=== PATIENT | male | born 1940 | race Caucasian/White ===

== ENCOUNTER 2019-10-29 10:08 | Outpatient (CLI) | payer MEDICARE, SELFPAY ==
--- NOTE | 2019-10-29 10:13 | ECG_ITS ---
Measurements Intervals [place] Rate: 58 P: 34 ND: 179 QRS: -29 QRSD: 158 T: 66 QT: 456 QTc: 451 Interpretive Statements SINUS BRADYCARDIA LEFT BUNDLE BRANCH BLOCK ABNORMAL ECG Electronically Signed On 10-29-2019 11:44:29 CDT by Bryce Aquino D.O.
[2019-10-29 10:49] LABS: Blood Urea Nitrogen 18 mg/dL (9-20); Calcium 10.6 mg/dL (8.4-10.2); Carbon Dioxide 28 mmol/L (22-30); Chloride 104 mmol/L (98-107); Estimated Glomerular Filt Rate > 60; Glucose 148 mg/dL (75-110); Potassium 4.7 mmol/L (3.4-5.0); Sodium 138 mmol/L (137-145)
== END 2019-10-29 10:09 | disposition home or self-care (01) ==
PROVIDERS: Anesthesiology; PCP Internal Medicine; Visit Provider Urology
DX: Z01.818 Encounter for other preprocedural examination (principal); C61 Malignant neoplasm of prostate; I10 Essential (primary) hypertension; E11.9 Type 2 diabetes mellitus without complications; R94.31 Abnormal electrocardiogram [ECG] [EKG]
CPT/HCPCS: 36415; 80048; 87086; 93005

== ENCOUNTER 2019-11-03 02:21 | Day surgery (SDC) | payer MEDICARE, SELFPAY ==
[2019-10-28 09:30] VITALS: BMI 29.1
--- NOTE | 2019-11-03 09:20 | WPDHPUPDATE1 ---
History and Physical Update Update Date/Time: 11/03/19 09:20 History and Physical has been reviewed, including an updated exam of the patient. There are NO changes in the patient's condition. Risks, benefits, and alternatives have been discussed and questions answered. Patient agrees to proceed with procedure.
[2019-11-03 10:55] VITALS: BP 159/72; PULSE 60; RESP 18; TEMP 36.3; O2SAT 97
[2019-11-03] MEDS: LACTATED RINGERS 1,000 ML 30 ML IV CONT (10:55)
[2019-11-03 11:02] LABS: Glucose Point of Care 138 (65-105)
--- NOTE | 2019-11-03 12:05 | WPDANESEPPF ---
Anes - Initial Pre Proc Eval Procedure: Operation Date: 11/03/19 12:30 Proposed Procedures p Insertion SpaceOAR Hydrogel System - Contreras Amaya MD Date/Time: 11/03/19 12:05 Surgeon: Contreras Amaya MD Pre Op Diagnosis: Prostate Ca Patient Data Age: 79 Gender: M Height: 6 ft Weight: 92.9 kg Last Vital Signs Temp 36.3 C L 11/03/19 10:55 Pulse 60 11/03/19 10:55 Resp 18 11/03/19 10:55 BP 159/72 H 11/03/19 10:55 Pulse Ox 97 11/03/19 10:55 Allergies Allergy/AdvReac Type Severity Reaction Status Date / Time No Known Allergies Allergy Unknown Verified 11/03/19 10:36 Home Medications Medication Instructions Recorded Confirmed Type amlodipine 10 mg PO HS 10/28/19 10/28/19 History aspirin 81 mg PO DAILY 10/28/19 10/28/19 History carbidopa-levodopa 2 tablet PO HS 10/28/19 10/28/19 History docusate sodium [Stool Softener] 100 mg PO DAILY 10/28/19 10/28/19 History gabapentin 100 mg PO BID 10/28/19 10/28/19 History glipizide 2.5 mg PO HS 10/28/19 10/28/19 History hydrochlorothiazide 25 mg PO DAILY 10/28/19 10/28/19 History isosorbide mononitrate 60 mg PO DAILY 10/28/19 10/28/19 History lisinopril 40 mg PO DAILY 10/28/19 10/28/19 History loratadine 10 mg PO HS 10/28/19 10/28/19 History metformin 1,000 mg PO BID 10/28/19 10/28/19 History metoprolol tartrate 50 mg PO Q12H 10/28/19 10/28/19 History pravastatin 80 mg PO HS 10/28/19 10/28/19 History Laboratory Tests 11/03/19 10:59 POC Capillary Glucose 138 mg/dl H mg/dl (65-105) Patient hx anesthesia problems: none Family hx anesthesia problems: none PMFSH Past Medical History Medical History Diabetes Hyperlipidemia Hypertension Myocardial infarction Neuropathy ES (obstructive sleep apnea) Prostate cancer Social History Social History Gender identity (if verbalized by the patient): Male Anes - Eval Final PreProcedure Day of Procedure 11/03/19 12:05 Patient weight: overweight Heart: regular rate and rhythm Lungs: decreased breath sounds Airway: Mallampati scale class II Neurological: alert and oriented Last oral intake: >/= 8 hours ASA classification: IV Emergent: no Anesthetic plan: proceed Anesthesia type and monitoring: general LMA and standard monitoring Informed Consent: The patient's anesthetic plan and its attendant risks and benefits were discussed with the patient/family/POA. Questions were solicited and answers provided to the satisfaction of the patient/family/POA.
[2019-11-03] MEDS: ceFAZolin 2 GM/D5W 50 ML 2 GM/50 ML BAG IVPB (13:03)
--- NOTE | 2019-11-03 13:28 | PM.PROC ---
Procedure Note - Detailed Date of procedure: 11/03/19 Pre-op diagnosis: Prostate Ca Post-op diagnosis: same Procedure performed: Space AOR 19576 Ultrasound guidance 56927 Description of procedure: Patient was taken to the operative suite and correctly identified. Once general anesthesia was obtained he was placed in the dorsal lithotomy position prepped and draped usual sterile fashion. Transrectal ultrasound was then placed. Prostate was visualized both the sagittal and axial planes from the base to the apex. The space Hydrogel was then prepared is described as manufacture's instructions for use. Under transrectal ultrasound guidance, 15 cm 18 gauge needle was inserted transperineal through the rectal urethralis muscle and the needle to be advanced into the perirectal fat posterior to the prostate. Needle position and downward bevel were confirm both sagittal and axial george. 3-5 cc of sterile saline was used to hydro dissect the space between the fascia and the anterior rectal wall. Aspiration did not yield any bleeding. With a needle-tip at mid gland the axial field was viewed to confirm the needle was not in the rectal wall. The assembled space Hydrogel delivery system was then attached to the 18 gauge needle. Under ultrasound guidance in the sagittal plane, a smooth, continuous injection technique was used to dispense all 10 cc of the space Hydrogel into the space between the prostate and the rectum. Optimal visualization of the needle during Hydrogel a associate professor of theatre a da silva was maintained at all times. No suspected penetration or compromise of the rectal wall occurred. Patient tolerated the procedure well without any complications and was taken recovery room in stable condition. Anesthesia: GLMA Surgeon: Contreras Amaya MD Drains: No Packing: No Pathology: none sent Complications: No immediate complications Condition: stable Disposition: PACU
[2019-11-03 13:33] VITALS: BP 106/63; PULSE 89; RESP 16; TEMP 36.3; O2SAT 100
[2019-11-03 13:40] LABS: Glucose Point of Care 105 (65-105)
[2019-11-03 13:45] VITALS: BP 106/55; PULSE 57; RESP 16; O2SAT 100
[2019-11-03 14:00] VITALS: BP 123/55; PULSE 56; RESP 14; O2SAT 97
[2019-11-03 14:10] VITALS: BP 148/76; PULSE 57; RESP 20
[2019-11-03 14:35] VITALS: BP 161/74; PULSE 57; RESP 16
== END 2019-11-03 15:15 | disposition home or self-care (01) ==
PROVIDERS: PCP Internal Medicine; Visit Provider Urology
PROC: (CPT 55874; principal; 2019-11-03 12:30)
DX: C61 Malignant neoplasm of prostate (principal); I10 Essential (primary) hypertension; E78.5 Hyperlipidemia, unspecified; I25.2 Old myocardial infarction; E11.40 Type 2 diabetes mellitus with diabetic neuropathy, unspecified; G47.33 Obstructive sleep apnea (adult) (pediatric); Z79.84 Long term (current) use of oral hypoglycemic drugs; Z79.82 Long term (current) use of aspirin
CPT/HCPCS: 55874; A9270; J0131; J0690; J2704; J7120

== ENCOUNTER 2019-11-13 09:32 | Outpatient (CLI) | payer MEDICARE, SELFPAY ==
--- NOTE | ~2019-11-13 | MR_ITS ---
EXAMINATION: MR pelvis wo/w con INDICATION: Malignant neoplasm of the prostate TECHNIQUE: Coronal SSFSE ARC, Axial and Coronal 2D FIESTA FatSat, Axial T2 FS, Axial SSFSE BH ARC, Ax ial 3D DualEcho BH, Axial SSFSE-IR Louis, Axial DWI b=600, pre and dynamic postcontrast Axial LAVA ARC, WATER:POST Cor LAVA-FLEX COMPARISON: None available CONTRAST: None FINDINGS: There is a 3.2 x 1.3 cm fluid collection situated between the rectum and prostate, most con sistent with postbiopsy change. Tiny foci of T1 signal hyperintensity in the prostate likely represen t postbiopsy hemorrhage. There are no pathologically enlarged pelvic lymph nodes. Bowel are seen in t he visualized osseous structures are unremarkable. IMPRESSION: 1. No evidence of metastatic disease. 2. Postbiopsy change. Reviewed, dictated and finalized at location B.
[2019-11-13 10:02] LABS: Basophils Percent Auto 0.6 % (0.2-1.2); Eosinophils Absolute Auto 0.4 K/mm3 (0-0.3); Eosinophils Percent Auto 5.2 % (0-4.4); Hematocrit 39.2 % (42.0-52.0); Immature Granulocyte Absolute 0.01 K/mm3 (0.00-0.031); Immature Granulocyte Percent A 0.1 % (0-0.5); Lymphocytes Absolute Auto 1.97 K/mm3 (0.9-3.2); Lymphocytes Percent Auto 27.9 % (18.3-44.2); Mean Corpuscular HGB Conc 33.2 g/dl (32-36); Mean Corpuscular Hemoglobin 28.3 pg (26-34); Mean Corpuscular Volume 85.2 fl (80-100); Mean Platelet Volume 9.7 fl (7.4-10.4); Monocytes Absolute Auto 0.6 K/mm3 (0.1-0.6); Monocytes Percent Auto 7.8 % (2.6-8.5); Neutrophils Absolute Auto 4.1 K/mm3 (1.3-6.7); Neutrophils Percent Auto 58.4 % (45.5-73.1); Platelet Count Result 265 k/mm3 (150-375); Red Cell Distribution Width 12.9 % (11.5-14.5); White Blood Count 7.1 K/mm3 (4.5-10.0)
[2019-11-13 10:04] LABS: Add Urine Microscopic? NO; Appearance Urine Clear (Clear); Bilirubin Urine Negative (Negative); Blood Urine Negative (Negative); Color Urine Yellow (Yellow); Glucose Urine UA Negative (Negative); Ketones Urine Negative (Negative); Leukocyte Esterase Ur Negative LEU/UL (NEGATIVE); Nitrate Urine Negative (Negative); Protein Urine Negative (Negative); Specific Grav Ur 1.014 (1.001-1.035); Urobilinogen Urine Negative mg/dL (<2.0)
[2019-11-13 10:18] LABS: Alanine Aminotransferase 22 U/L (4-50); Albumin Level 4.4 g/dL (3.5-5.1); Alkaline Phosphatase 82 U/L (38-126); Aspartate Amino Transferase 25 U/L (17-59); Bilirubin,Total 0.3 mg/dL (0.2-1.3); Blood Urea Nitrogen 25 mg/dL (9-20); Calcium 10.6 mg/dL (8.4-10.2); Carbon Dioxide 26 mmol/L (22-30); Chloride 106 mmol/L (98-107); Estimated Glomerular Filt Rate > 60; Glucose 133 mg/dL (75-110); Potassium 4.2 mmol/L (3.4-5.0); Sodium 137 mmol/L (137-145)
[2019-11-13 11:13] LABS: Estimated Glomerular Filt Rate > 60
== END 2019-11-13 09:33 | disposition home or self-care (01) ==
PROVIDERS: Visit Provider Radiology Radiation Oncology
DX: C61 Malignant neoplasm of prostate (principal)
CPT/HCPCS: 36415; 72197; 80053; 81003; 85025; A9577

== ENCOUNTER 2020-11-04 08:34 | Outpatient (CLI) | payer MEDICARE, SELFPAY ==
--- NOTE | ~2020-11-04 | MR_ITS ---
EXAMINATION: MR abdomen wo/w con DATE: 11/04/2020 09:54 INDICATION: Renal mass TECHNIQUE: Magnetic resonance imaging (MRI) of the abdomen was performed without and with 19 mL Multi rikki intravenous contrast. Sequences included coronal T2-weighted SS-FSE, coronal and axial FS 2D-F IESTA, axial STIR FSE, axial T2-weighted SS-FSE, axial T2-weighted FS SS-FSE, axial diffusion-weighte d SE, axial dual-echo T1-weighted FSPGR, and axial and coronal T1-weighted LAVA. Postcontrast axial T 1-weighted LAVA images were obtained in a time course. Postcontrast coronal T1-weighted LAVA images w ere obtained. COMPARISON: None. FINDINGS: Mild cardiomegaly. No pericardial or pleural effusion. Small fluid-filled diverticulum at the gastric fundus. Liver, gallbladder, spleen and left adrenal gland are normal. 1.6 cm right adrenal nodule wi th signal dropout on opposed phase images consistent with adenoma. 6 mm nonenhancing cystic lesion at the tail of the pancreas. A few bilateral T2 hyperintense nonenhancing renal cysts the largest measu ring 10 mm at the lower pole of the right kidney. Visualized portions of the bowels are unremarkable with no obstruction. No pathologically enlarged abdominal lymphadenopathy. Severe lumbar spondylosis. IMPRESSION: 1. A few small bilateral T2 hyperintense nonenhancing renal cysts. No other suspicious renal lesions. 2. Mild cardiomegaly. Reviewed, dictated and finalized at location B. IMPRESSION: 1. A few small bilateral T2 hyperintense nonenhancing renal cysts. No other urbano picious renal lesions. 2. Mild cardiomegaly.
[2020-11-04 09:26] LABS: Estimated Glomerular Filt Rate > 60
== END 2020-11-04 08:35 | disposition home or self-care (01) ==
LOC: ANHIMG 08:39
PROVIDERS: PCP Family Medicine; Visit Provider Urology
DX: N28.89 Other specified disorders of kidney and ureter (principal); I51.7 Cardiomegaly
CPT/HCPCS: 74183; A9577